=== PATIENT | female | born 1930 | race Asian ===

== ENCOUNTER 2017-06-08 19:16 | Inpatient (IN) | payer OTHER ==
[~2017-06-08] VITALS: Ht 165.1 cm; Wt 72.8 kg
[2017-06-08 19:33] VITALS: Ht 165.1 cm; Wt 72.8 kg
[2017-06-08 21:45] LABS: PLATELET COUNT 144 x10^3mcL (130-400)
[2017-06-08 21:46] LABS: BASOPHIL % 0 % (0-2); RED CELL DISTRIBUTION WIDTH 14.6 % (11.5-14.5)
[2017-06-08 21:54] LABS: CALCIUM 8.9 mg/dL (8.5-10.1); CARBON DIOXIDE 23.8 mmol/L (21-32); CHLORIDE SERUM 108 mmol/L (98-107); CREATININE SERUM 1.2 mg/dL (0.6-1.0); GLUCOSE SERUM 116 mg/dL (74-106); POTASSIUM SERUM 3.5 mmol/L (3.5-5.1); SODIUM SERUM 142 mmol/L (136-145)
[2017-06-08 22:07] LABS: ALBUMIN 3.6 g/dL (3.4-5.0); ALKALINE PHOSPHATASE 56 U/L (46-116); ALT/SGPT 22 U/L (14-59); AST/SGOT 21 U/L (15-37); BILIRUBIN TOTAL 0.53 mg/dL (0.20-1.00)
[2017-06-08 23:34] LABS: MAGNESIUM 2.2 mg/dL (1.8-2.4); PHOSPHOROUS 2.6 mg/dL (2.5-4.9)
[2017-06-08 23:35] LABS: CHOLESTEROL/HDL RATIO 3.8
[2017-06-08] MEDS ORDERED: METOPROLOL TART50 MG PO (23:43)
[2017-06-08] MEDS ORDERED: ZOLOFT50 MG PO (23:43)
[2017-06-08] MEDS ORDERED: ATIVAN0.5 M1 PO (23:43)
[2017-06-08] MEDS ORDERED: EPZICOM1 TAB (23:44)
[2017-06-08] MEDS ORDERED: DIOVAN HCT1 TA1 PO (23:44)
[2017-06-08] MEDS ORDERED: LEVOXYL0.05 MG PO (23:44)
[2017-06-08] MEDS ORDERED: HYDROCHLOROTH12.5 M2 PO (23:47)
[2017-06-08] MEDS ORDERED: XARELTO10 M1 PO (23:48)
[2017-06-09 00:31] LABS: UA SPECIFIC GRAVITY 1.025 (1.005-1.035); microscopic required? YES; urine erythrocyte 1+ (NEGATIVE)
[2017-06-09 00:40] VITALS: BP 119/70
[2017-06-09 05:39] VITALS: BP 107/56
[2017-06-09 07:37] LABS: BASOPHIL % 0.3 % (0-2); RED CELL DISTRIBUTION WIDTH 14.1 % (11.5-14.5)
[2017-06-09 07:40] LABS: PLATELET COUNT 118 x10^3mcL (130-400)
[2017-06-09 07:58] LABS: CALCIUM 8.5 mg/dL (8.5-10.1); CARBON DIOXIDE 25.5 mmol/L (21-32); CHLORIDE SERUM 109 mmol/L (98-107); CREATININE SERUM 1.1 mg/dL (0.6-1.0); GLUCOSE SERUM 97 mg/dL (74-106); POTASSIUM SERUM 3.7 mmol/L (3.5-5.1); SODIUM SERUM 145 mmol/L (136-145)
[2017-06-09 10:15] VITALS: BP 104/56
[2017-06-09 14:35] VITALS: BP 108/50
[2017-06-09 17:15] VITALS: BP 96/59
[2017-06-09 20:49] VITALS: BP 99/60
[2017-06-10 05:42] VITALS: BP 139/63
[2017-06-10 06:50] LABS: CALCIUM 8.5 mg/dL (8.5-10.1); CARBON DIOXIDE 24.2 mmol/L (21-32); CHLORIDE SERUM 107 mmol/L (98-107); GLUCOSE SERUM 125 mg/dL (74-106); SODIUM SERUM 141 mmol/L (136-145)
[2017-06-10 06:56] LABS: BASOPHIL % 0.3 % (0-2)
[2017-06-10 07:10] LABS: PLATELET COUNT 113 x10^3mcL (130-400); RED CELL DISTRIBUTION WIDTH 14.7 % (11.5-14.5)
[2017-06-10 09:52] VITALS: BP 104/56
[2017-06-10 13:54] VITALS: BP 113/68
[2017-06-10 14:54] LABS: CALCIUM 8.8 mg/dL (8.5-10.1); CARBON DIOXIDE 24.3 mmol/L (21-32); CHLORIDE SERUM 106 mmol/L (98-107); CREATININE SERUM 1.1 mg/dL (0.6-1.0); GLUCOSE SERUM 195 mg/dL (74-106); POTASSIUM SERUM 3.9 mmol/L (3.5-5.1); SODIUM SERUM 140 mmol/L (136-145)
[2017-06-10 17:59] VITALS: BP 135/64
[2017-06-10 20:43] VITALS: BP 119/63
[2017-06-11 06:14] VITALS: BP 145/69
[2017-06-11 06:20] LABS: BASOPHIL % 0.4 % (0-2)
[2017-06-11 06:50] LABS: CALCIUM 8.9 mg/dL (8.5-10.1); CARBON DIOXIDE 29.4 mmol/L (21-32); CHLORIDE SERUM 106 mmol/L (98-107); GLUCOSE SERUM 125 mg/dL (74-106); POTASSIUM SERUM 3.7 mmol/L (3.5-5.1); SODIUM SERUM 142 mmol/L (136-145)
[2017-06-11 07:06] LABS: PLATELET COUNT 114 x10^3mcL (130-400); RED CELL DISTRIBUTION WIDTH 14.6 % (11.5-14.5)
[2017-06-11 09:51] VITALS: BP 119/61
[2017-06-11 10:42] VITALS: BP 119/61
[2017-06-11] MEDS ORDERED: LAC PO (11:26)
== END 2017-06-11 13:16 | DRG 535 ==
LOC: ED 19:16 → DU 22:18
PROVIDERS: Emergency Medicine; Family Medicine Sports Medicine
DX: S32.591A Other specified fracture of right pubis, initial encounter for closed fracture (principal); N17.0 Acute kidney failure with tubular necrosis; I42.0 Dilated cardiomyopathy; I11.9 Hypertensive heart disease without heart failure; E87.6 Hypokalemia; I48.2 Chronic atrial fibrillation; N20.0 Calculus of kidney; R31.9 Hematuria, unspecified; E78.5 Hyperlipidemia, unspecified; E03.9 Hypothyroidism, unspecified; Z68.26 Body mass index [BMI] 26.0-26.9, adult; Z95.0 Presence of cardiac pacemaker; Z79.01 Long term (current) use of anticoagulants; Z88.0 Allergy status to penicillin; Z88.8 Allergy status to other drugs, medicaments and biological substances; W01.0XXA Fall on same level from slipping, tripping and stumbling without subsequent striking against object, initial encounter; Y92.009 Unspecified place in unspecified non-institutional (private) residence as the place of occurrence of the external cause
CPT/HCPCS: 83880; 84439; 97110-GP; 97116-GP; 97530-GP; J1885; J2270; J3480; J7030